=== PATIENT | male | born 1970 | race Caucasian/White ===

== ENCOUNTER 2019-04-04 19:13 | Emergency (ER) | payer OTHER ==
[2019-04-04 19:25] VITALS: BP 132/91
--- NOTE | 2019-04-04 20:10 | ED Physician Documentation ---
PD HPI ABD PAIN - Stated complaint Stated Complaint: SWALLOWED GLASS - Chief complaint Chief Complaint: Abd Pain - History obtained from History obtained from: Patient (He was eating a burrito from [employer], he noticed something crunchy and it thought it was bone but later realized it was glass. He feels like he may have ingested some. He shows me a piece of glass that is maybe 3 mm long in a little plastic baggy.) Review of Systems Constitutional: denies: Fever, Chills, Myalgias Respiratory: denies: Dyspnea, Cough GI: reports: Abdominal Pain (mild epigastric). denies: Nausea, Vomiting, Diarrhea PD PAST MEDICAL HISTORY - Present Medications Home Medications: Ambulatory Orders Medication Instructions Recorded Confirmed Pregabalin [Lyrica] 300 mg pe PO BID 04/04/19 04/04/19 buPROPion [Wellbutrin Xl] 150 mg PO DAILY 04/04/19 04/04/19 - Allergies Allergies/Adverse Reactions: Allergies Allergy/AdvReac Type Severity Reaction Status Date / Time No Known Drug Allergies Allergy Verified 04/04/19 19:25 PD ED PE NORMAL - Vitals Vital signs reviewed: Yes - General General: Alert and oriented X 3, No acute distress - HEENT HEENT: Dentition benign - Respiratory Respiratory: No respiratory distress, Clear bilaterally - Abdomen Abdomen: Non tender - Neuro Neuro: Alert and oriented X 3, Normal speech Results - Vitals Vitals: Vital Signs - 24 hr 04/04/19 19:20 Temperature 36.5 C Heart Rate 85 Respiratory 18 Rate Blood Pressure 132/91 H O2 Saturation 100 Oxygen O2 Source Room air - Rads (name of study) 1v abd and 2v Chest Radiology: EMP read contemporaneously (Per the radiologist he has a generous stool load but no foreign body, to my eye he also has a right lower lobe pulmonary nodule) Departure - Departure Disposition: 01 Home, Self Care Clinical Impression: Swallowed foreign body, Pulmonary nodule, right Condition: Good Record reviewed to determine appropriate education?: Yes Instructions: ED Nodule Solitary Pulmonary, ED Foreign Body Swallowed Adult Comments: As discussed, you will need a repeat chest x-ray in 6 months to reassess the pulmonary nodule. Return for new or worsening symptoms. Your blood pressure was elevated today on check into the emergency department. This does not mean that you have hypertension, it is a common phenomenon to come to the emergency department and have elevated blood pressure. I recommend that you see your primary care physician within the week to have it rechecked when you are feeling better. Discharge Date/Time: 04/04/19 20:31
--- NOTE | 2019-04-04 20:25 | XRAY Report ---
Reason: swallowed FB Procedure Date: 04/04/2019 Accession Number: [id number] / [id number] Procedure: XR - Chest 2 View X-Ray CPT Code: 83393 FULL RESULT: EXAM: CHEST RADIOGRAPHY EXAM DATE: 04/04/2019 07:50 PM. CLINICAL HISTORY: Swallowed foreign body. COMPARISON: None. TECHNIQUE: 2 views. FINDINGS: LUNGS: The lungs are clear. PLEURA: No significant pleural effusion. No clinically significant pneumothorax. MEDIASTINUM: The cardiomediastinal silhouette is unremarkable. BONES: No displaced acute fracture. No suspicious osseous lesions. IMPRESSION: 1. No acute disease. 2. No radiopaque foreign body identified. RADIA
--- NOTE | 2019-04-04 20:28 | XRAY Report ---
Reason: swallowed FB Procedure Date: 04/04/2019 Accession Number: [id number] / [id number] Procedure: XR - Abdomen 1 View X-Ray CPT Code: 43293 FULL RESULT: EXAM: ABDOMEN RADIOGRAPHY EXAM DATE: 04/04/2019 07:50 PM. CLINICAL HISTORY: Swallowed foreign body. Found glass in food COMPARISON: None. TECHNIQUE: 1 view. FINDINGS: Bowel Gas Pattern: Nonobstructed bowel gas pattern. Large amount of stool within the colon. No significant free intraperitoneal air. Other: The liver is enlarged. No radiopaque foreign body identified. IMPRESSION: 1. No radiopaque foreign body identified. 2. Hepatomegaly. 3. Large volume stool in the colon, correlate clinically for constipation. RADIA
== END 2019-04-04 20:31 | disposition home or self-care (01) ==
LOC: ED 19:13
DX: T18.9XXA Foreign body of alimentary tract, part unspecified, initial encounter (principal); Y93.89 Activity, other specified; R91.1 Solitary pulmonary nodule; R03.0 Elevated blood-pressure reading, without diagnosis of hypertension
CPT/HCPCS: 71046; 74018; 99283

== ENCOUNTER 2022-05-09 16:57 | Emergency (ER) | payer OTHER ==
[2022-05-09] MEDS ORDERED: ALBUTEROL NEB 2.5 MG/3 ML INH STA (17:43)
[2022-05-09] MEDS ORDERED: IPRATROPIUM 0.2 MG/ML NEB INH STA (17:43)
--- NOTE | 2022-05-09 17:45 | ED Physician Documentation ---
History of Present Illness - Stated complaint Stated Complaint: COLDS/COUGH - Chief complaint Chief Complaint: Resp - Additonal information Additional information: 51-year-old male presents emergency department for evaluation of cough cold and congestion that now began nearly 3 weeks ago. His had traveled out of the country and when she returned she was sick. He reports that he is tested negative for COVID last week but has not tested this week. He is doubly vaccinated and boosted. He states that the cough just seems to persist. Is present throughout the day worse when he lays flat. He is also endorsing some night sweats and diaphoresis. No nausea or vomiting. Denies any chest pain. He is a non-smoker. Review of Systems Constitutional: reports: Fever, Chills, Myalgias, Fatigue, Sweats Eyes: reports: Reviewed and negative Ears: reports: Reviewed and negative Nose: reports: Reviewed and negative Throat: reports: Reviewed and negative Cardiac: reports: Reviewed and negative Respiratory: reports: Dyspnea, Cough, Wheezing GI: reports: Reviewed and negative : reports: Reviewed and negative PD PAST MEDICAL HISTORY - Present Medications Home Medications: Ambulatory Orders Medication Instructions Recorded Confirmed Pregabalin [Lyrica] 300 mg pe PO BID 04/04/19 04/04/19 buPROPion [Wellbutrin Xl] 150 mg PO DAILY 04/04/19 04/04/19 Albuterol Sulf [Ventolin Hfa 1 - 2 puffs INH Q4HR PRN #1 each 05/09/22 Inhaler] Azithromycin [Zithromax] 0 mg PO DAILY #6 tablet 05/09/22 Benzonatate [Tessalon] 200 mg PO TID PRN #20 cap 05/09/22 - Allergies Allergies/Adverse Reactions: Allergies Allergy/AdvReac Type Severity Reaction Status Date / Time No Known Drug Allergies Allergy Verified 05/09/22 17:11 PD ED PE NORMAL - General General: Alert and oriented X 3, No acute distress - HEENT HEENT: Atraumatic, Moist mucous membranes, Other (Significant congestion) - Neck Neck: Supple, no meningeal sign, No adenopathy - Cardiac Cardiac: RRR, No murmur, No gallop - Respiratory Respiratory: No respiratory distress. No: Clear bilaterally (Generally rhonchorous breath sounds with faint scattered expiratory wheezes. Room air saturations are 96%. Nonlabored. No tachypnea) - Abdomen Abdomen: Normal bowel sounds, Soft - Male Male : Deferred - Back Back: No CVA TTP - Derm Derm: Normal color, Warm and dry, No rash - Extremities Extremities: No deformity - Neuro Neuro: Alert and oriented X 3 Eye Opening: Spontaneous Motor: Obeys Commands Verbal: Oriented GCS Score: 15 Results - Vitals Vitals: Vital Signs - 24 hr 05/09/22 05/09/22 17:07 18:01 Temperature 36.8 C Heart Rate 78 94 Respiratory 18 22 Rate Blood Pressure 120/72 O2 Saturation 97 Oxygen O2 Source Room air - Labs Labs: Laboratory Tests 05/09/22 17:15 SARS-CoV-2 (PCR) NOT DETECTED - Rads (name of study) cxr Radiology: Final report received (No acute cardiopulmonary findings) PD MEDICAL DECISION MAKING - ED course Complexity details: reviewed results, re-evaluated patient, considered differential, d/w patient ED course: 51-year-old male presents emergency department for evaluation of a cough and congestion that began about 2 weeks ago. He originally became sick after [place] had [place] from [place] He has tested negative for COVID. He is vaccinated and boosted. On exam room air saturations are normal however he has generally very rhonchorous breath sounds as well as some faint scattered expiratory wheeze. A chest x-ray did not reveal any acute focal opacity. Here in the emergency department his COVID screen is negative. Respiratory therapy did give him a DuoNeb treatment which she feels improved his cough and on reauscultation he is sounding much clear. At this time patient is stable for discharge home. We will start him on azithromycin as treatment for acute bronchitis. A prescription for Tessalon Perles as well as Albuterol will also be sent to the pharmacy. I am encouraging patient to follow-up with his primary care provider. Emergent return precautions were discussed for failure symptoms to improve. Departure - Departure Disposition: 01 Home, Self Care Clinical Impression: Bronchitis Condition: Stable Record reviewed to determine appropriate education?: Yes Instructions: ED Upper Resp Infec Abx Tx Prescriptions: Albuterol Sulf [Ventolin Hfa Inhaler] 1 - 2 puffs INH Q4HR PRN #1 each PRN Reason: Shortness Of Air/Wheezing Benzonatate [Tessalon] 200 mg PO TID PRN #20 cap PRN Reason: Cough Azithromycin [Zithromax] 0 mg PO DAILY #6 tablet Comments: Rufus you are seen today in the emergency department because you have had a cough now for about 2 weeks. Your chest x-ray does not show an obvious pneumonia but because you have had a cough for so long without failure of it to improve I suspect that you have a bronchitis that may improve by taking a course of antibiotics. A prescription for azithromycin has been sent to the pharmacy. I have also sent some Tessalon Perles to help with the cough as well as albuterol the inhaler that you were taught to use. I would like you to use the inhaler 4-6 times a day until the cough begins to resolve. With rest, adequate fluids and these medications I would expect your cough to be getting better over the course of the next week. If it is not improving, you have a persistence of fevers, any chest pain or severe shortness of air you should return immediately to the ER for second evaluation
--- NOTE | 2022-05-09 18:00 | XRAY Report ---
PROCEDURE: Chest 1 View X-Ray INDICATIONS: Cough, short of breath TECHNIQUE: One view of the chest was acquired. COMPARISON: None FINDINGS: Surgical changes and devices: None. Lungs and pleura: No pleural effusions or pneumothorax. Lungs are clear. Mediastinum: Mediastinal contours appear normal. Heart size is normal. Bones and chest wall: No suspicious bony lesions. Overlying soft tissues appear unremarkable. IMPRESSION: No acute cardiopulmonary findings Reviewed by: Norm Velez MD on 05/09/2022 4:59 PM AKDT Approved by: Norm Velez MD on 05/09/2022 4:59 PM AKDT Station ID: [id number]
[2022-05-09 18:47] VITALS: BP 153/87
== END 2022-05-09 18:50 | disposition home or self-care (01) ==
LOC: ED 16:57
DX: J20.9 Acute bronchitis, unspecified (principal)
CPT/HCPCS: 71045; 87635; 94640; 94664; 99282; 99284; A9270

== ENCOUNTER 2024-01-20 08:00 | Outpatient (CLI) | payer OTHER ==
--- NOTE | 2024-01-20 13:48 | XRAY Report ---
PROCEDURE: Chest 2V INDICATIONS: EDEMA TECHNIQUE: 2 views of the chest were acquired. COMPARISON: 05/09/2022 FINDINGS: Surgical changes and devices: None. Lungs and pleura: No pleural effusions or pneumothorax. Lungs are clear. Mediastinum: Mediastinal contours appear normal. Heart size is normal. Bones and chest wall: No suspicious bony lesions. Overlying soft tissues appear unremarkable. IMPRESSION: No acute cardiopulmonary process. Reviewed by: Liana Moran MD on 01/20/2024 1:47 PM PDT Approved by: Liana Moran MD on 01/20/2024 1:47 PM PDT Station ID: [id number]
== END 2024-01-20 23:59 | disposition home or self-care (01) ==
LOC: DI.S 08:00
PROVIDERS: ATTEND Registered Nurse
DX: R60.0 Localized edema (principal)

== ENCOUNTER 2024-01-20 12:02 | Outpatient (CLI) | payer OTHER ==
[2024-01-20 15:46] LABS: BASOPHILS # (AUTO) 0.1 10^3/uL (0.0-0.1); BASOPHILS % (AUTO) 1.2 %; EOSINOPHILS # (AUTO) 0.1 10^3/uL (0.0-0.7); EOSINOPHILS % (AUTO) 1.7 %; HCT - HEMATOCRIT 40.7 % (42.0-52.0); HGB - HEMOGLOBIN 13.6 g/dL (14.0-18.0); LYMPHOCYTES % (AUTO) 35.1 %; MEAN CORPUSCULAR HEMOGLOBIN 30.4 pg (27.0-31.0); MEAN CORPUSCULAR HGB CONC 33.4 g/dL (32.0-36.0); MEAN CORPUSCULAR VOLUME 90.8 fL (80.0-94.0); MEAN PLATELET VOLUME 10.6 fL (7.4-11.4); MONOCYTES # (AUTO) 0.6 10^3/uL (0.0-1.0); MONOCYTES % (AUTO) 9.8 %; NEUTROPHILS % (AUTO) 51.9 %; PLT - PLATELET COUNT 245 10^3/uL (130-450); RED BLOOD COUNT 4.48 10^6/uL (4.70-6.10); RED CELL DISTRIBUTION WIDTH 12.3 % (12.0-15.0); WHITE BLOOD COUNT 5.8 x10^3/uL (4.8-10.8)
[2024-01-20 16:15] LABS: ALBUMIN 4.2 g/dL (3.2-5.5); ALBUMIN/GLOBULIN RATIO 1.6 (1.0-2.2); BILIRUBIN,TOTAL 0.5 mg/dL (0.2-1.0); CALCIUM 9.1 mg/dL (8.5-10.3); CREATININE 0.8 mg/dL (0.6-1.3); POTASSIUM 3.9 mmol/L (3.5-4.5); TOTAL PROTEIN 6.8 g/dL (6.4-8.9)
== END 2024-01-20 12:03 | disposition home or self-care (01) ==
LOC: LAB.S 12:02
PROVIDERS: ATTEND Registered Nurse
DX: R60.9 Edema, unspecified (principal)
CPT/HCPCS: 36415; 80053; 83880; 85025